=== PATIENT | female | born 1955 | race Caucasian/White ===

== ENCOUNTER 2016-10-16 07:44 | Day surgery (SDC) | payer OTHER ==
[~2016-10-16] VITALS: Ht 167.6 cm; Wt 73.1 kg
[2016-10-16] MEDS ORDERED: ATORVASTATIN (09:24)
[2016-10-16 09:25] VITALS: Ht 167.6 cm; Wt 73.1 kg
[2016-10-16 09:45] VITALS: BP 105/58; PULSE 90; RESP 21
[2016-10-16] MEDS ORDERED: MIDAZOLAM 1 MG/ML 2 ML INJ ONE ×4 (10:18→13:29)
[2016-10-16] MEDS ORDERED: FENTAnyl 50 MCG/ML VIAL ONE ×2 (10:18→13:28)
[2016-10-16 10:35] VITALS: BP 102/59; RESP 20
--- NOTE | 2016-10-16 14:43 | GILP ---
DATE OF PROCEDURE: 10/16/2016 PROCEDURE PERFORMED: Colonoscopy with polypectomy. INDICATION: The patient is a 61-year-old female undergoing this procedure for screening colonoscopy . The risk of the procedure, related and unrelated complications, anesthetic, sedative risks, alter natives discussed and informed consent was obtained. DESCRIPTION OF PROCEDURE: The patient was brought to the GI lab, sedated with Versed and fentanyl. After optimal sedation, scope was passed with much ease into rectum. Prior to that, digital examin ation was done which was normal. Scope was advanced all the way into cecum. Appendiceal orifice id entified. IC valve identified. Preparation was good ____liquid. There was a collection of some se mi-formed liquidy stool at different angulations. While coming out, mucosa thoroughly inspected. T here was a polyp near the splenic flexure successfully removed by cold snare technique. There was a nother polyp in the transverse colon which was removed by jumbo biopsy forceps. Rest of the colon a ppeared normal. Retroversion done, hemorrhoids identified. Scope was straightened out and removed with good patient tolerance. IMPRESSION: 1. Hemorrhoids. 2. A 1 cm polyp near the splenic flexure successfully removed by cold snare technique. 3. Diminutive polyp, flat, near the hepatic flexure successfully removed by cold biopsy forceps. 4. Negative all the way into cecum. 5. Hemorrhoids. PLAN: Stay on high fiber diet. Depending upon the histopathology of the polyp, will decide regardi ng the colonoscopy. Most probably, the patient will need colonoscopy in 5 years. Dictated By: PHYLLIS SIGALA/PILY Conf#: [id number] DID#: [id number]
== END 2016-10-16 12:52 | disposition home or self-care (01) ==
LOC: GIL 07:44
PROVIDERS: ATTEND Internal Medicine Gastroenterology
DX: Z12.11 Encounter for screening for malignant neoplasm of colon (principal); D12.3 Benign neoplasm of transverse colon; K63.5 Polyp of colon; K64.9 Unspecified hemorrhoids
CPT/HCPCS: 45380; 45385; 88305; 88312; J2250; J3010; Z7610